=== PATIENT | male | born 1945 | race Caucasian/White ===

== ENCOUNTER 2016-05-23 20:00 | Inpatient (IN) | payer MEDICARE, OTHER ==
[~2016-05-23] VITALS: Ht 172.7 cm; Wt 70.5 kg
--- NOTE | ~2016-05-23 | HP ---
PATIENT'S NAME: MASTER BE [facility] AGE: 70 Y [address] ROOM: [place] [address] LOCATION: GPCU ADMIT DATE: 05/23/2016 History & Physical DISCHARGE DATE: FAMILY PHYSICIAN: Master Cervantes MD ATTENDING PHYSICIAN: Kiesha Hanna DATE OF SERVICE: HISTORY OF PRESENT ILLNESS: This is a 70-year-old male who developed an abrupt onset of chest pain while watching TV at his home. He also has complaints of shortness of breath. He described the chest pain as in the anterior side of his chest. He had no complaints of dizziness, presyncope or syncope, diaphoresis, nausea, vomiting, or diarrhea. He has had no recent changes to his health. At the time of this consult, the patient was emergently transferred to the catheterization suite as a code STEMI due to ST elevations noted on his EKG, specifically his inferior leads of lead II, III, and aVF. He is currently status post a drug- eluting stent placement to his RCA. At the time of this dictation, he is resting comfortably in bed with no further complaints of chest pain. PAST MEDICAL HISTORY: 1. Hypertension. 2. Dyslipidemia. 3. Chronic kidney disease. 4. Pulmonary fibrosis. 5. Rheumatoid arthritis. 6. GERD. 7. Osteoarthritis. PAST SURGICAL HISTORY: 1. Appendectomy. 2. Wrist surgery. 3. Chest tube placement previously. FAMILY HISTORY: The patient's father had a history of heart disease and also had several strokes. He did have a pacemaker, but ultimately at age of 74. SOCIAL HISTORY: The patient denies ever using cigarettes. He does have a history of chewing tobacco. He quit using 3 years ago and chewed tobacco for a total of 15 years. He also admits to alcohol use 1 day a week and on those days, he will have up to 1 drink at a time. He denies illicit drug use. HOME MEDICATIONS: PATIENT'S NAME: MASTER BE [facility] AGE: 70 Y [address] ROOM: [place] [address] LOCATION: GPCU ADMIT DATE: 05/23/2016 History & Physical DISCHARGE DATE: FAMILY PHYSICIAN: Hranac, Master A MD ATTENDING PHYSICIAN: Kiesha Hanna 1. Tylenol 650 mg p.o. every 6 hours. 2. Norvasc 10 mg p.o. daily in the evening. 3. Aspirin 81 mg p.o. daily. 4. Vitamin D 2000 units p.o. daily. 5. Folic acid 1 mg p.o. daily. 6. Lasix 20 mg p.o. daily. 7. Plaquenil 200 mg p.o. twice daily. 8. Trandate 100 mg p.o. twice daily. 9. Prevacid 30 mg p.o. daily. 10. Cozaar 100 mg p.o. daily in the evening. 11. Methotrexate 7.5 mg p.o. on Tuesday morning. 12. Methotrexate 5 mg p.o. on Tuesday evening. 13. Multivitamin 1 tablet p.o. daily. 14. Prednisone 5 mg p.o. daily. 15. Requip 0.5 mg p.o. daily in the evening. 16. Zocor 40 mg p.o. daily in the evening. 17. Ultram 500-100 mg p.o. twice daily as needed for pain. MEDICATION ALLERGIES: No known medication allergies. REVIEW OF SYSTEMS: Pertinent positive review of systems as noted in the HPI. All other review of systems evaluated and negative. PHYSICAL EXAMINATION: VITAL SIGNS: Temperature 97.6, pulse 85, respirations 20, blood pressure 207/95, and O2 saturation 98% on room air. These vital signs are from the emergency department record. SKIN: [place], warm, and dry. EYES: Sclerae clear. No xanthelasmas. ENT: Oral mucosa is pink and moist. No jugular venous distention. No carotid bruits. CHEST: Respirations are even and unlabored. LUNGS: Clear to auscultation. HEART: Regular rate and rhythm. Normal S1, S2. No murmurs, rubs, or gallops. ABDOMEN: Soft and nontender. MUSCULOSKELETAL: Gait is normal. EXTREMITIES: Peripheral pulses palpable. No clubbing, cyanosis, or edema. PSYCH: Alert and oriented. Mood and affect are appropriate. IMPRESSION AND PLAN: Per Dr. Hanna: 1. Acute inferior ST elevated myocardial infarction. Once again, the PATIENT'S NAME: MASTER BE [facility] AGE: 70 Y [address] ROOM: [id number] [place] [id number] [facility] AD[facility] DATE: 05/23/2016 History & Physical DISCHARGE DATE: FAMILY PHYSICIAN: Master Cervantes MD ATTENDING PHYSICIAN: Kiesha Hanna patient is currently status post a drug-eluting stent to the RCA after being emergently taken to the catheterization suite as a code STEMI for evaluation of his coronary anatomy. 2. Hypertension. 3. Dyslipidemia. 4. Coronary artery disease. We will continue to monitor, evaluate, and treat as appropriate. Thank you for allowing [facility] to interact in the care of this patient. VIDYA MAYNARD APRN FOR KIESHA HANNA MD DEH/modl /[id number] D: [id number] T: [id number] HISTORY & PHYSICAL
--- NOTE | ~2016-05-23 | CATH ---
Cardiac Diagnostic + PCI Report Demographics Patient Name [place] Gonzalez Gender Male Date of 1945 Age 70 year(s) Patient Number [id number] Date of Study 05/23/2016 Visit Number [id number] Room Number G6[address] [place] [id number] Ht 172.72 cm Wt 74.84 kg Referring [facility] Sebastian Marycarmen Primary Physician Physician Performing Efstratiou Secondary Physician Physician Jose Carlos Conroy MD Diagnostic Efstratiou Assisting Physician Physician Jose Carlos Conroy MD Interventional Efstratiou Physician Reinspector Physician Jose Carlos Conroy MD Findings and Conclusions Diagnostic Findings and Conclusion Severe mid LAD stenosis. Culprit for STEMI is RCA which is partially revascularized after Heparin and Integrilin Diagnostic Recommendations PCI of RCA recommended Interventional Findings and Conclusion Successful PCI of the distal RCA coronary artery using a Drug Eluting stent. Interventional Recommendations DAPT indefinitely Staged intervention to LAD Procedure Description The patient was brought to the diagnostic cardiac catheterization-EP laboratory by emergency personal. Physician deemed procedure as EMERGENT. The planned puncture-incision site(s) were shaved and prepped with ChloraPrep and draped in the usual sterile manner. Conscious sedation, supplemental oxygen, and pain control medications were delivered by a registered nurse under physician guidance. Surface ECG rhythm, blood pressure measurement, and pulse oximetry were monitored throughout the procedure. Arterial access. The access site was infiltrated with lidocaine. The vessel was entered with the Seldinger technique. A sheath was advanced into the vessel and used for catheter placement. Selective left coronary angiography. A catheter was advanced into the left coronary vessel ostium under Fluoroscopic guidance. Contrast was injected by hand. Images were obtained in multiple projections. Angioplasty and Stent Placement: A guiding catheter was used to intubate the vessel. A 0.14 wire was then used to cross the lesion. A balloon catheter was placed across the lesion and inflated. The balloon catheter was then removed. A Drug Eluting Stent was placed and inflated. Post placement angiograms were performed. Arterial artery hemostasis was achieved. The patient was transferred to a regular nursing floor via cart accompanied by a nurse. The patient left the laboratory in stable condition. Diagnostic Cath Status: Emergency Interventional Cath Status: Emergency Procedure Procedure Type Diagnostic procedure:Angiography:, Coronary Angios PCI procedure:Drug Eluting Coronary Stent:, RCA, PCI: Bypass/VA/POSTPARTUM RN:, Acute VA-all interventions Indications: Acute VA. Angiographic Findings Dominance: Mixed Cardiac Arteries and Lesion Findings LMCA: Lesion on LMCA: Distal subsection.20% stenosis . LAD: Lesion on Prox LAD: Ostial.20% stenosis . Lesion on Mid LAD: Mid subsection.80% stenosis . Lesion on 1st Diag: Ostial.80% stenosis . LCx: Lesion on Prox CX: Ostial.20% stenosis . RCA: Lesion on Dist RCA: Mid subsection.99% stenosis 16 mm length reduced to 0%. Pre procedure ROSY II flow was noted. Post Procedure ROSY III flow was present. The guidewire cross was successful.The lesion was diagnosed as a moderate risk lesion.The lesion showed evidence of thrombus presence.Culprit lesion. Devices used - Whisper Wire .014 x 190. Number of passes: 1. - Emerge Balloon 2.25 x 12. 1 inflation(s) to a max pressure of: 12 syed. - Promus Premier 2.5 x 16 Stent. 1 inflation(s) to a max pressure of: 18 syed. Cardiac Collaterals - collateral flow from the Dist CX to the R PDA. Coronary Tree Procedure Data Procedure Date Date: 05/23/2016Start: 09:00 PMEnd: 09:41 PM Entry Locations - Retrograde Percutaneous access was performed through the Right Radial artery (Primary location). A 6 Fr sheath was inserted. Hemostasis was successfully obtained using Mechanical Compression. Closure Comments: R Band - 13mL's of air. Procedure Medications Order and Administration + + +-------+-------+ !Time !Medication !Dosage !Route ! + + +-------+-------+ !05/23/2016 !PAE Radial Cocktail: Heparin 5000 units, ! !I.A. ! !09:03 PM !Nitroglycerin 200mcg, Verapamil 3 mg ! ! ! ! !(ACC_3) ! ! ! + + +-------+-------+ !05/23/2016 !Atropine !0.5 mg !I.V. ! !09:21 PM ! ! ! ! + + +-------+-------+ !05/23/2016 !Brilinta (Ticagrelor) (ACC_20) !180 mg !P.O. ! !09:30 PM ! ! ! ! + + +-------+-------+ Devices Used - A6 Fr. BS JL 3.5 Diag. Catheterwas used for:Left coronary angiography. - A6 Fr. HS Guide Catheterwas used for:RCA Intervention.Unable to cannulate the vessel. - A6 Fr. AL1 Guide Catheterwas used for:RCA Intervention. - A6 Fr. BS JR 4 Diag. Catheterwas used for:Was not used. Contrast Material - Isovue [id number] ml Fluoroscopy Time: Diagnostic: 10:18 minutes. Total: 10:18 minutes. Fluoroscopy Dose: Diagnostic: 1358 mGy. Total: 1358 mGy. Estimated Blood Loss: 10 ml. Additional [facility] PCI Information PCI Indication:PCI for STEMI (Stable, >12 hrs from Sx onset). Medical History Performed Procedures and Imaging Results - No [facility] stress or imaging studies were performed. Allergies - No known allergies. Risk Factors The patient risk factors include:hypertension, family history of premature CAD, last creatinine: 1.8 mg/dl, creatinine clearance: 41.58 ml/min and dyslipidemia. Admission Data Admission Date: 05/23/2016 Admission Time: 08:22 PM Admit Source: Emergency department Insurance Payors: Medicare. Admission Medications + +------+-----+---------+---------+ + + !Medication !Dosage!Times!Last !Last !Administered !Comments ! ! ! !Per !Delivery !Delivery ! ! ! ! ! !Day !Date !Time ! ! ! + +------+-----+---------+---------+ + + !Statin (any) ! ! ! ! !Yes ! ! + +------+-----+---------+---------+ + + !Beta James ! ! ! ! !Yes ! ! !(any) ! ! ! ! ! ! ! + +------+-----+---------+---------+ + + !Unfractionated ! ! ! ! !Yes ! ! !Heparin (any) ! ! ! ! ! ! ! + +------+-----+---------+---------+ + + !Aspirin (any) ! ! ! ! !Yes ! ! + +------+-----+---------+---------+ + + Clinical Evaluation Leading to Procedure - The patient's CAD presentation was assessed as: STEMI.The symptom onset was first noted on 05/23/2016 06:30 PM - The patient's anginal syndrome during the past two weeks was assessed as: Class IV according to the [place] Cardiovascular Society Classification System (CCS). Anti-anginal medications were prescribed during the past two weeks. The medications are: Beta Blockers and Ca channel Blockers. Snapshots Hemodynamics Condition: Rest O2 Consumption: Estimated: 224.02Heart Rate: 78 bpm Pressures (mmHg) +-----+ + !Site !Pressure ! +-----+ + !AO !127/67 (94) ! +-----+ + !AO !102/39 (65) ! +-----+ + !AO !121/59 (88) ! +-----+ + Shunts Oxygen Values O2 Capacity 172.72 O2 Consumption 224.02 Signatures dtt: Sue Alexander dtd: 05/23/16 2100 Physician Self Edit
--- NOTE | ~2016-05-23 | ECHO ---
Transthoracic Echocardiography Report (TTE) Demographics Patient Name MASTER BE Date of Study 05/24/2016 Patient Number [id number] Visit Number [id number] Date of 1945 Room Number G6336 Gender Male Number Age 70 year(s) Referring [facility] [employer] Manager Raúl Conroy MD RDCS, RVT Physician Interpreting [facility] Math Interventionist Physician Jose Carlos Conroy MD Supervising Ordering [facility] MD/MLP Physician Jose Carlos Conroy MD Nurse Stress Sheeter Helper Conclusions Contractility Score Summary At rest the following contractility abnormalities were noted: Hypokinesis of the Mid infero-septal, the Mid inferior, the Apical inferior, the Apical septal, the Basal inferior and the Apical cap segments. Contractility of all other segments appeared normal. Summary The estimated left ventricular ejection fraction is 50-55%. Normal left ventricle size Diastolic assessment reveals Grade I diastolic dysfunction. Posterior hypokinesis. Inferior hypokinesis. Trivial posterior pericardial effusion. Procedure Type of Study TTE procedure:2D Echocardiogram. Procedure Date Date: 05/24/2016 Start: 10:25 AM Study Location: Inpatient Portable Technical Quality: Adequate visualization Additional Indications:Post Heart Cath Appropriate Use Criteria: 9 Patient Status: Routine HR: 65 bpm BP: 121/75 mmHg Allergies - No known allergies. M-Mode/2D Measurements LV Diastolic Dimension: 4.46 cm LV Systolic Dimension: 2.89 cm LV Septum Diastolic: 0.8 cm LV PW Diastolic: 0.74 cm Cardiac Output: 5.36 l/min LA Dimension: 3.3 cm EF Estimated: 55 % LVOT: 2.2 cm LVOT VTI: 21.7 cm RV Base: 3.43 cm LV Stroke volume: 82.45 ml RV Length: 6.81 cm TAPSE: 2.9 cm TDI-S': 22.6 cm/s Doppler Measurements AV Peak Velocity: 1.28 m/s MV Peak E-Wave: 0.7 m/s AV Peak Gradient: 6.55 mmHg MV Peak A-Wave: 0.93 m/s AV Mean Gradient: 4 mmHg MV E/A Ratio: 0.76 LVOT Peak Velocity: 1.07 m/s MV P1/2t: 82 msec TR Gradient:21.34 mmHg PV Peak Velocity: 0.87 m/s Estimated RAP:5 mmHg PV Peak Gradient: 3.05 mmHg Estimated RVSP: 26 mmHg Estimated PASP: 26.34 mmHg E' Septal Velocity: 0.05 m/s A' Septal Velocity: 0.16 m/s E' Lateral Velocity: 0.05 m/s A' Lateral Velocity: 0.13 m/s Findings Left Ventricle Normal left ventricle size Diastolic assessment reveals Grade I diastolic dysfunction. Posterior hypokinesis. Inferior hypokinesis. Right Ventricle Normal right ventricle structure and function. Left Atrium The left atrium is mildly dilated by LA volume index measurement. Right Atrium Normal right atrial size. Mitral Valve Normal mitral valve structure and function. Trivial mitral regurgitation by color Doppler. Aortic Valve The aortic valve is mildly sclerotic. There is trivial aortic regurgitation by color Doppler. Tricuspid Valve Trivial tricuspid regurgitation by color Doppler. Normal estimated pulmonary artery pressure. Pulmonic Valve Normal pulmonic valve structure and function. Pericardial Effusion Trivial posterior pericardial effusion. Miscellaneous Visualized portions of the aortic root and ascending aorta appear normal in size. Pleural Effusion No evidence of pleural effusion. Contractility Score LV regional wall motion:(0-Non visualized 1-Normal 2-Hypokinesis 3-Akinesis 4-Dyskinesis 5-Aneurysm) Signature dtt: Sue Alexander dtd: 05/24/16 1025 Physician Self Edit
--- NOTE | ~2016-05-23 | ER ---
PATIENT'S NAME: SEBASTIAN BE [facility] AGE: 70 Y [address] ROOM: [address] [address] LOCATION: GPCU ADMIT DATE: 05/23/2016 ER/Outpatient Report DISCHARGE DATE: FAMILY PHYSICIAN: Sebastian Cervantes MD ATTENDING PHYSICIAN: Sue Alexander Admission date and time documented on the medical record. I saw the patient at 2005 hours. CHIEF COMPLAINT: Anterior chest pain with shortness of breath. HISTORY OF PRESENT ILLNESS: The patient is a 70-year-old male who was sitting watching TV when he had acute onset of anterior chest pain, pressure nonradiating. He had accompanied shortness of breath. No diaphoresis, nausea, vomiting, lightheadedness, or dizziness. No syncope or near syncope. No fall or trauma. No recent colds, coughs, flus, fever, chills, or sweats. No headache, eyes, ears, nose, throat, neck, or spine pain. No abdominal pain, nausea, vomiting, diarrhea, or urinary frequency, urgency, or dysuria. No incontinence. No joint or muscle swelling, redness, or pain. No skin eruptions or rash. No history of neuro changes, psych issues, or endocrine problems. HOME MEDICATIONS: See attached medication list. ALLERGIES: NONE. SOCIAL HISTORY: Nonsmoker. Occasional intake of alcohol. SIGNIFICANT PAST MEDICAL HISTORY: Hypertension, gastroesophageal reflux, dyslipidemia, degenerative osteoarthritis, rheumatoid arthritis, pulmonary fibrosis, chronic kidney disease, and remote tobacco abuse. OPERATIONS: Appendectomy. See chest tube placement and wrist surgery. REVIEW OF SYSTEMS: All systems reviewed by me are negative with exception of those discussed in the history of present illness. PHYSICAL EXAMINATION: PATIENT'S NAME: SEBASTIAN BE [facility] AGE: 70 Y [address] ROOM: [address] [address] LOCATION: GPCU ADMIT DATE: 05/23/2016 ER/Outpatient Report DISCHARGE DATE: FAMILY PHYSICIAN: Sebastian Cervantes MD ATTENDING PHYSICIAN: Sue Alexander VITAL SIGNS: Temperature 97.6, pulse 85 and regular, respirations 20, blood pressure 207/95, and O2 saturation on room air is 98%. HEENT: Head: Normocephalic. Eyes, Ears, Nose, Throat: Clear. Mucous membranes are moist. Teeth and jaw intact. NECK: No nuchal rigidity. No findings of adenopathy. No pain. SPINE: Nontender. No deformity. LUNGS: Clear. Good air flow. No rales, rhonchi, or wheezes. HEART: Regular. Pulses are palpable. No chest wall or ribcage pain to palpation. ABDOMEN: Soft, nondistended, and nontender. Good bowel tones. No organomegaly or abnormal masses palpable. EXTREMITIES: Without peripheral edema, cyanosis, or deformity. NEUROVASCULAR: Intact. SKIN: Clear. No skin eruptions or rash. EKG: EKG shows acute ST elevation inferior leads consistent with acute inferior infarct. Chest x-ray showed no acute infiltrate or changes. We will review x- ray with the radiologist. LABORATORY DATA: CMS was normal except an elevated glucose 12. Elevated creatinine 1.8. Low GFR 38. CPK was 130. CK-MB was 2.7. Troponin was less than 0.04. White count is 9100. Differential: 67 segs, 15 lymphs, 15 monos, 2 eos, 1 baso. Hemoglobin was 12.7, hematocrit 38.2, platelet count was 311,000. PTT was 27, pro time was 10 with an INR of 1.0. I did call a code STEMI. I did talk to Dr. Alexander, superintendent pier. I did give the patient 4 baby aspirin, 5000 units of heparin IV bolus, Lipitor 80 mg orally, and Integrilin 20 mg IV bolus. IMPRESSION: 1. Chest pain, ST elevation myocardial infarction and inferior myocardial infarction. 2. Dyslipidemia. 3. Hypertension. 4. Remote tobacco abuse. 5. Chronic kidney disease. 6. Pulmonary fibrosis. PLAN: STEMI was called. Dr. Alexander came into the emergency room to see the patient, took him back to manager labor delivery. We will proceed on Dr. Alexander's evaluation for further treatment. Discussion ensued with the patient and his concerning my findings and recommendations, they understand. PATIENT'S NAME: SEBASTIAN BE [facility] AGE: 70 Y [address] ROOM: [place] [address] LOCATION: GPCU ADMIT DATE: 05/23/2016 ER/Outpatient Report DISCHARGE DATE: FAMILY PHYSICIAN: Sebastian Cervantes MD ATTENDING PHYSICIAN: Sue Alexander critical care time 30 minutes. MD MARISA BISHOP/modl /[id number] d: 05/23/16 2343 t: 05/24/16 0342, OUTPATIENT REPORT
[~2016-05-23 20:00] MED LIST: ASPIRIN (CHILDR81 MG PO; COZAAR100 MG PO; DELTASONE5 MG PO; FOLIC ACID1 MG PO; LASIX20 MG PO; METHOTREXATE2.5 MG PO; NORVASC5 MG PO; PERCOCET 5-3251 EACH PO; PLAQUENIL200 MG PO; PREVACID30 M1 PO; REQUIP0.5 MG PO; THERAGRAN-M1 TAB PO; TRANDATE OR NO100 MG PO; TYLENOL325 MG PO; ULTRAM50 MG PO; VITAMIN D2000 UNIT PO; ZOCOR40 MG PO
[2016-05-23 20:22] LABS: BASOPHIL # 0.1 K/uL (0.0-0.2); EOSINOPHIL # 0.1 K/uL (0.0-0.5); EOSINOPHIL % 1.5 %; HEMATOCRIT 38.2 % (37.0-53.0); HEMOGLOBIN 12.7 g/dL (11.0-16.0); IMMATURE GRANULOCYTE % 0.2 %; LYMPHOCYTE # 1.4 K/uL (0.8-4.0); LYMPHOCYTE % 15.1 %; MCH 31.4 pg (27.0-34.0); MCHC 33.2 gm/dL (32.0-36.5); MCV 94.6 fl (83.0-98.0); MONOCYTE # 1.4 K/uL (0.0-1.0); MONOCYTE % 14.9 %; MPV 8.8 fl (9.4-12.4); NEUTROPHIL # (ANC) 6.1 K/uL (1.4-9.0); NEUTROPHIL % 67.3 %; NRBC % 0 /100WBC (0-0.00); PLATELET COUNT 311 K/uL (150-450); RBC 4.04 M/uL (3.50-5.50); RDW-CV 13.2 % (11.9-14.6); WBC 9.1 K/uL (4.0-11.0)
[2016-05-23 20:33] LABS: PTT 27 SECONDS (25-32)
[2016-05-23 20:40] LABS: ALBUMIN 3.8 gm/dL (3.5-5.0); ALK PHOS 89 IU/L (33-138); ALT 37 IU/L (12-78); ANION GAP 16.8 (10.0-19.0); AST 23 IU/L (10-40); BLOOD UREA NITROGEN 24 mg/dL (6-24); CALCIUM 8.8 mg/dL (8.5-10.5); CHLORIDE 104 mMol/L (96-110); CO2 22 mMol/L (22-32); CPK 130 IU/L (35-332); CREATININE 1.8 mg/dL (0.6-1.3); ESTIMATED GFR (MDRD EQUATION) 38; MAGNESIUM 2.3 mg/dL (1.3-2.6); POTASSIUM 3.8 mMol/L (3.7-5.1); SODIUM 139 mMol/L (135-145)
[2016-05-23 20:42] LABS: TOTAL BILIRUBIN 0.3 mg/dL (0.0-1.5)
--- NOTE | 2016-05-23 23:40 | NUR ---
Patient arrived to PCU at 2145 from [facility]. He states he had been sitting in his recliner this evening around 1900 when he had chest pain across the top of his chest but thought it was indigestion, arrived to ER code stemi, straight to [facility]. 1 stent placed to RCA through R) radial approach. Patient arrives to room VSS, R band to wrist, no distress or pain, NS infusing to L)wrist, family at bedside.
[2016-05-24 05:05] LABS: ALBUMIN 3.3 gm/dL (3.5-5.0); ANION GAP 16.2 (10.0-19.0); CALCIUM 8.7 mg/dL (8.5-10.5); CREATININE 1.5 mg/dL (0.6-1.3); POTASSIUM 4.2 mMol/L (3.7-5.1); TOTAL PROTEIN 6.4 g/dL (6.0-8.4)
[2016-05-24 05:08] LABS: TOTAL BILIRUBIN 0.5 mg/dL (0.0-1.5)
--- NOTE | 2016-05-24 06:52 | NUR ---
Significant Event: A/O, SBP 130-150s, sinus 70s, RA, afebrile, no c/o pain, R band off R)wrist at 0510, bandaid and coban intact, csm wnl, no hematoma/oozing, NS infusing for 1500mls, 6 beats vtach this am, good UOP Follow up: continue plan of care
--- NOTE | 2016-05-24 15:10 | NUR ---
Introduced self and role of care management to patient and . They live in [place]. He states that he is able to do all his own ADL's. His is available to assist as needed. He plans on returning home on discharge. They deny any needs at this time. Will continue to follow.
--- NOTE | 2016-05-24 16:13 | NUR ---
Significant Event: A/O. VSS on RA. Denies pain. Up and ambulating with no complaints of CP or SOB. A couple episodes of vtach, patient asymptomatic - cards increased coreg. Up with minimal assist. R) radial heart cath site WNL. Family at bedside. Follow up: home tomorrow.
[2016-05-25 04:43] LABS: BASOPHIL # 0.1 K/uL (0.0-0.2); BASOPHIL % 0.7 %; EOSINOPHIL # 0.1 K/uL (0.0-0.5); EOSINOPHIL % 0.9 %; HEMATOCRIT 35.7 % (37.0-53.0); HEMOGLOBIN 11.6 g/dL (11.0-16.0); IMMATURE GRANULOCYTE % 0.4 %; LYMPHOCYTE # 1.5 K/uL (0.8-4.0); LYMPHOCYTE % 16.1 %; MCH 31.2 pg (27.0-34.0); MCHC 32.5 gm/dL (32.0-36.5); MONOCYTE # 1.3 K/uL (0.0-1.0); MONOCYTE % 13.9 %; MPV 8.9 fl (9.4-12.4); NEUTROPHIL # (ANC) 6.2 K/uL (1.4-9.0); NRBC % 0 /100WBC (0-0.00); PLATELET COUNT 295 K/uL (150-450); RBC 3.72 M/uL (3.50-5.50); RDW-CV 13.6 % (11.9-14.6); WBC 9.1 K/uL (4.0-11.0)
--- NOTE | 2016-05-25 04:52 | NUR ---
Significant Event: A&Ox3. VS continue to remain stable, on RA. Up independently with no gait issues. No c/o CP or SOB overnight. Denies pain through shift. Pt remained in NS throughout the night with no episodes of Vtach. R radial heart cath site remains WDL. Current EF 50-55%, last trop measures @ 1630 yesterday was 51.5. No cardiac labs ordered this AM. Mag 2.2. Plan is to d/c home today. Follow up:
[2016-05-25 05:00] LABS: ANION GAP 11.9 (10.0-19.0); CALCIUM 8.4 mg/dL (8.5-10.5); CREATININE 1.6 mg/dL (0.6-1.3); POTASSIUM 3.9 mMol/L (3.7-5.1)
[2016-05-25] MEDS ORDERED: LIPITOR80 MG PO (08:25)
[2016-05-25] MEDS ORDERED: COREG25 MG PO (08:26)
[2016-05-25] MEDS ORDERED: INSPRA25 MG PO (08:27)
[2016-05-25] MEDS ORDERED: BRILINTA90 MG PO (08:30)
--- NOTE | 2016-05-25 09:54 | NUR ---
PATIENT IS A/OX3, VSS ON ROOM AIR. DISMISSAL INSTRUCTIONS, NEW MEDICATIONS, POST RADIAL HEART CATH INSTRUCTIONS GONE OVER WITH PATIENT AND . [place] CARD GIVEN TO PATIENT FROM [facility]. IV'S TO L)AC & L)FA WERE REMOVED WITHOUT DIFFICULTY. PT. IS UP AD KENDRICK IN ROOM, SHOWERED THIS MORNING. BAND-AID CHANGED TO RIGHT RADIAL CATH SITE, NO HEMATOMA, BRUISING NOTED TO SITE, DRESSING IS C/D/I. NO FURTHER QUESTIONS AT THIS TIME.
== END 2016-05-25 09:45 | disposition disaster alternative care site (69) | DRG 247 ==
LOC: GMED 20:00 → GPCU 20:22
PROVIDERS: Emergency Medicine; Internal Medicine Interventional Cardiology; ADMIT Internal Medicine Cardiovascular Disease
PROC: B2111ZZ Fluoroscopy of Multiple Coronary Arteries using Low Osmolar Contrast (ICD-10-PCS; principal; 2016-05-23)
PROC: 02703ZZ Dilation of Coronary Artery, One Artery, Percutaneous Approach (ICD-10-PCS; principal; 2016-05-23)
PROC: 027034Z Dilation of Coronary Artery, One Artery with Drug-eluting Intraluminal Device, Percutaneous Approach (ICD-10-PCS; principal; 2016-05-23)
DX: I21.11 ST elevation (STEMI) myocardial infarction involving right coronary artery (principal); J84.10 Pulmonary fibrosis, unspecified; I47.1 Supraventricular tachycardia; I25.10 Atherosclerotic heart disease of native coronary artery without angina pectoris; I12.9 Hypertensive chronic kidney disease with stage 1 through stage 4 chronic kidney disease, or unspecified chronic kidney disease; N18.9 Chronic kidney disease, unspecified; E78.5 Hyperlipidemia, unspecified; M06.9 Rheumatoid arthritis, unspecified; M19.90 Unspecified osteoarthritis, unspecified site; K21.9 Gastro-esophageal reflux disease without esophagitis; Z95.5 Presence of coronary angioplasty implant and graft; Z87.891 Personal history of nicotine dependence; Z79.82 Long term (current) use of aspirin; Z79.52 Long term (current) use of systemic steroids
CPT/HCPCS: C1725; C1769; C1874; C1887; C1894; C9606; J0461; J1327; J1644; J2270; J2370; J3010; J7030; J7512

== ENCOUNTER 2016-06-17 07:43 | Outpatient (CLI) | payer MEDICARE, OTHER ==
[~2016-06-17] VITALS: Ht 172.7 cm; Wt 70.5 kg
--- NOTE | ~2016-06-17 | CATH ---
Cardiac Diagnostic + PCI Report Demographics Patient Name [place] Gonzalez Gender Male Date of 1945 Age 70 year(s) Patient Number [id number] Date of Study 06/17/2016 Visit Number [id number] Room Number G63[address] [place] [id number] Ht 172.72 cm Wt 68.6 kg Referring [facility] Sebastian Conroy Primary Physician Physician Performing [facility] Secondary Physician Physician Jose Carlos Conroy MD Diagnostic [facility] Assisting Physician Physician oJse Carlos Conroy MD Interventional [facility] Physician Marketing Production Coordinator Physician Jose Carlos Conroy MD Findings and Conclusions Diagnostic Findings and Conclusion 90% Ostial lesion to the Diagonal. 90% in mid LAD Diagnostic Recommendations Medical treatment for Diagonal to avoid lengthy procedure and excessive dye load. PCI to LAD Interventional Findings and Conclusion Successful PCI to Mid LAD with MALIK. Interventional Recommendations Continue ASA and Brilinta. Procedure Description Informed consent was obtained in the written and verbal form after the risks and benefits were explained. The patient had no further questions and agreed to proceed. The planned puncture-incision site(s) were shaved and prepped with ChloraPrep and draped in the usual sterile manner. Supplemental oxyge was delivered by a registered nurse under physician guidance. Surface ECG rhythm, blood pressure measurement, and pulse oximetry were monitored throughout the procedure. Arterial access. The access site was infiltrated with lidocaine. The vessel was entered with the Seldinger technique. A sheath was advanced into the vessel and used for catheter placement. Selective left coronary angiography. A catheter was advanced into the left coronary vessel ostium under Fluoroscopic guidance. Contrast was injected by hand. Images were obtained in multiple projections. Stent Placement: A guiding catheter was used to intubate the vessel. A 0.14 wire was used to cross the lesion. A Drug Eluting Stent was placed. Post placement angiograms were performed. Arterial artery hemostasis was achieved. The patient was transferred to a regular nursing floor via cart accompanied by a nurse. The patient left the laboratory in stable condition. Diagnostic Cath Status: Elective Interventional Cath Status: Elective Procedure Procedure Type Diagnostic procedure:Angiography:, Coronary Angios PCI procedure:Drug Eluting Coronary Stent:, LAD Indications: CAD and Hypertension. The procedure was explained in detail to the patient. Risks, complications and alternative treatments were reviewed. Written consent was obtained. Medications Reviewed with Patient prior to Procedure. Angiographic Findings Dominance: Mixed Cardiac Arteries and Lesion Findings LAD: Lesion on Mid LAD: Mid subsection.90% stenosis 16 mm length reduced to 0%. Pre procedure ROSY III flow was noted. Post Procedure ROSY III flow was present. The guidewire cross was successful.The lesion was diagnosed as a low risk lesion.Culprit lesion. Devices used - Whisper Wire .014 x 190. Number of passes: 1. - Emerge Balloon 2.0 x 12. 1 inflation(s) to a max pressure of: 14 syed. - Promus Premier 2.25 x 16 Stent. 1 inflation(s) to a max pressure of: 11 syed. - NC Emerge Balloon 2.5 x 8. 2 inflation(s) to a max pressure of: 18 syed. Lesion on 1st Diag: Ostial.90% stenosis . There is a previous stent on Dist RCA Mid subsection. Cardiac Collaterals - collateral flow from the Dist CX to the R PDA. Coronary Tree Procedure Data Procedure Date Date: 06/17/2016Start: 10:34 AMEnd: 11:07 AM Entry Locations - Retrograde Percutaneous access was performed through the Right Radial artery (Primary location). A 6 Fr sheath was inserted. Hemostasis was successfully obtained using Mechanical Compression. Closure Comments: 14 ml's of air in Radial Band placed by Irvin Becker.. Procedure Medications Order and Administration + + + +--------+ !Time !Medication !Dosage !Route ! + + + +--------+ !06/17/2016 10:38 AM!Radial Verapamil !3 mg !I.A. ! + + + +--------+ !06/17/2016 10:38 AM!Radial Heparin (ACC_3) !5000 units!I.A. ! + + + +--------+ !06/17/2016 10:38 AM!Radial Nitroglycerin !100 mcg !I.A. ! + + + +--------+ !06/17/2016 10:38 AM!Heparin (ACC_3) !2000 units!I.V. ! + + + +--------+ !06/17/2016 10:39 AM!Oxygen !2 l/min !NC ! + + + +--------+ !06/17/2016 10:41 AM!D5W 1000ml w/ 150 mEq Sodium !300 !I.V. ! ! !Bicarb ! ! ! + + + +--------+ !06/17/2016 10:41 AM!Sherman-Synephrine (Phenylephrine) !100 mcg !I.V. ! + + + +--------+ !06/17/2016 11:05 AM!Oxygen ! !NC ! + + + +--------+ Devices Used - A6 Fr. XBLAD 3.5 Guide Catheterwas used for:LAD Intervention. Contrast Material - Isovue 04138 ml Fluoroscopy Time: Diagnostic: 5:36 minutes. Total: 5:36 minutes. Fluoroscopy Dose: Diagnostic: 763 mGy. Total: 763 mGy. Estimated Blood Loss: 15 ml. Additional [facility] PCI Information PCI Indication:Staged PCI. Medical History Performed Procedures and Imaging Results - No [facility] stress or imaging studies were performed. History of Disease + + + + !Diagnosis !Date !Comments ! + + + + !CAD ! ! ! + + + + !Hypertension ! ! ! + + + + Allergies - No known allergies. Risk Factors The patient risk factors include:prior PCI on 05/23/2016;treated hypercholesterolemia, treated hypertension, family history of premature CAD, chronic lung disease, last creatinine: 1.8 mg/dl, creatinine clearance: 38.11 ml/min, dyslipidemia and prior MD . Admission Data Admission Date: 06/17/2016 Admission Time: 07:43 AM Admit Source: Other Insurance Payors: Medicare. Admission Medications + +------+------+ + + + + !Medication !Dosage!Times !Last !Last !Administered !Comments ! ! ! !Per !Delivery !Delivery ! ! ! ! ! !Day !Date !Time ! ! ! + +------+------+ + + + + !Aspirin ! ! ! ! !Yes ! ! !(any) ! ! ! ! ! ! ! + +------+------+ + + + + !Statin ! ! ! ! !Yes ! ! !(any) ! ! ! ! ! ! ! + +------+------+ + + + + !ARB (any) ! ! ! ! !Yes ! ! + +------+------+ + + + + !Beta ! ! ! ! !Yes ! ! !James ! ! ! ! ! ! ! !(any) ! ! ! ! ! ! ! + +------+------+ + + + + !Ticagrelor ! ! ! ! !Yes ! ! + +------+------+ + + + + Clinical Evaluation Leading to Procedure - There were no CAD presentation symptoms. - Anti-anginal medications were prescribed during the past two weeks. The medications are: Beta Blockers and Ca channel Blockers. Snapshots Hemodynamics Condition: Rest O2 Consumption: Estimated: 216.26Heart Rate: 77 bpm Pressures (mmHg) +-----+ + !Site !Pressure ! +-----+ + !AO !67/44 (54) ! +-----+ + !AO !96/58 (75) ! +-----+ + !AO !120/56 (80) ! +-----+ + Shunts Oxygen Values O2 Capacity 175.44 O2 Consumption 216.26 Signatures dtt: Sue Alexander dtd: 06/17/16 1034 Physician Self Edit
[~2016-06-17 07:43] MED LIST changes: +BRILINTA90 MG PO; +COREG25 MG PO; +INSPRA25 MG PO; +LIPITOR80 MG PO
[2016-06-17 08:33] LABS: ALBUMIN 3.7 gm/dL (3.5-5.0); ANION GAP 13.8 (10.0-19.0); CALCIUM 8.8 mg/dL (8.5-10.5); CREATININE 1.8 mg/dL (0.6-1.3); POTASSIUM 3.8 mMol/L (3.7-5.1); TOTAL BILIRUBIN 0.5 mg/dL (0.0-1.5)
[2016-06-17 08:39] LABS: HEMATOCRIT 38.6 % (37.0-53.0); HEMOGLOBIN 12.9 g/dL (11.0-16.0); MCH 31.2 pg (27.0-34.0); MCHC 33.4 gm/dL (32.0-36.5); MCV 93.2 fl (83.0-98.0); MPV 8.9 fl (9.4-12.4); PLATELET COUNT 276 K/uL (150-450); RBC 4.14 M/uL (3.50-5.50); RDW-CV 14.1 % (11.9-14.6); WBC 8.5 K/uL (4.0-11.0)
[2016-06-17 08:57] LABS: PROTIME 10.7 SECONDS (9.6-11.1); PTT 27 SECONDS (25-32)
--- NOTE | 2016-06-17 09:01 | NUR ---
one iv attempe made per rajivrn
[2016-06-17 09:21] LABS: ABSOLUTE NEUTROPHIL CT (ANC) 6.6 K/uL (1.4-9.0); BANDED NEUTROPHIL # 0.3 K/uL (0.0-0.1); BANDED NEUTROPHILS % 3 %; LYMPHOCYTE # 0.8 K/uL (0.8-4.0); LYMPHOCYTE % 9 %; MONOCYTE # 0.9 K/uL (0.0-1.0); SEGMENTED NEUTROPHIL # 6.4 K/uL (1.4-9.0); SEGMENTED NEUTROPHIL % 75 %
[2016-06-17 12:19] LABS: CPK 61 IU/L (35-332)
--- NOTE | 2016-06-17 17:26 | NUR ---
Significant Event: A/O x3, cooperative with cares VSS, SBPs 90-120s, HRs 70s, on room air. Heart cath; site to R) radial, soft non-tender; R) band removed et band-aid with compression wrap applied. Ambulate palma x2 with cardiac rehab. Follow up: ? home tomorrow
[2016-06-17 17:31] LABS: CPK 53 IU/L (35-332)
--- NOTE | 2016-06-18 04:35 | NUR ---
Significant Event: Patient A/Ox3. VSS on RA. R) radial site wrapped with coban. pulses strong, hand warm, no numbness or tingling. Up independently in room. No complaints of pain. Follow up: Home today
[2016-06-18 06:00] LABS: ALBUMIN 3.3 gm/dL (3.5-5.0); ANION GAP 13.7 (10.0-19.0); CALCIUM 8.6 mg/dL (8.5-10.5); CREATININE 1.8 mg/dL (0.6-1.3); POTASSIUM 3.7 mMol/L (3.7-5.1); TOTAL PROTEIN 6.1 g/dL (6.0-8.4)
[2016-06-18 06:02] LABS: TOTAL BILIRUBIN 0.3 mg/dL (0.0-1.5)
--- NOTE | 2016-06-18 10:37 | NUR ---
Significant Event: A/O x3, cooperative with cares. VSS, SBPs 110-120s, HRs 80s, on room air. No c/o pain. R) radial cath site, soft, non-tender; compression dressing C/D/I. Up in room ad nic. Dismissal instructions given to patient et , verbalized understanding. Dismissed to front lobby per w/c accompanied by transport staff. Follow up:
== END 2016-06-18 10:35 | disposition disaster alternative care site (69) ==
LOC: GCAT 07:43 → GPCU 07:43 → GPOC 08:00 → GPCU 10:51 → GCAT 06-18 10:35
PROVIDERS: Internal Medicine Cardiovascular Disease
PROC: 027034Z Dilation of Coronary Artery, One Artery with Drug-eluting Intraluminal Device, Percutaneous Approach (ICD-10-PCS; principal; 2016-06-17)
DX: I25.10 Atherosclerotic heart disease of native coronary artery without angina pectoris (principal); I25.2 Old myocardial infarction; I12.9 Hypertensive chronic kidney disease with stage 1 through stage 4 chronic kidney disease, or unspecified chronic kidney disease; N18.3 Chronic kidney disease, stage 3 (moderate); E78.5 Hyperlipidemia, unspecified; M19.90 Unspecified osteoarthritis, unspecified site; J84.10 Pulmonary fibrosis, unspecified; M06.9 Rheumatoid arthritis, unspecified; K21.9 Gastro-esophageal reflux disease without esophagitis; Z95.5 Presence of coronary angioplasty implant and graft; Z79.01 Long term (current) use of anticoagulants; Z79.82 Long term (current) use of aspirin; Z79.891 Long term (current) use of opiate analgesic; Z79.52 Long term (current) use of systemic steroids; Z79.899 Other long term (current) drug therapy
CPT/HCPCS: C1725; C1769; C1874; C1887; C1894; C9600; J1644; J2001; J2250; J2370; J3010; J7030; J7060; J7512